=== PATIENT | male | born 1995 | race Caucasian/White ===

== ENCOUNTER 2022-10-10 13:09 | Emergency (ER) | payer BC ==
[2022-10-10] MEDS ORDERED: Acetaminophen 500 MG TAB ONE (13:33)
== END 2022-10-10 14:25 | disposition home or self-care (01) ==
LOC: ERS 13:09
DX: S09.90XA Unspecified injury of head, initial encounter (principal); Y93.64 Activity, baseball
CPT/HCPCS: 70450